=== PATIENT | male | born 1965 | race Caucasian/White ===

== ENCOUNTER → 2017-04-16 | Day surgery (SDC) | payer BC ==
[~2017-04-16] MED LIST: LIPITOR40 MG PO; SERTRALINE HCL100 M1 PO; ZESTORETIC 10-1 EAC1 PO
--- NOTE | ~2017-04-16 | OR ---
Unit #: [id number] #: [id number] Patient: LEON MOSES [id number] [address] [address] [id number] O MR#: [id number] NAME: LEON MOSES ROOM: Date of Procedure: 04/16/2017 Admission Date: 04/16/2017 Surgeon: Steve Bell M.D. : 1965 Attending Physician: Steve Bell M.D. Primary Care Physician: Jojo Merritt M.D. PROCEDURE OPERATIVE NOTE PROCEDURE PERFORMED Colonoscopy to the cecum. INDICATION A 51 year old with average risk for colorectal cancer. MEDICATION Monitored anesthesia. POSTOP FINDINGS 1. Colonoscopy completed to cecum. 2. Good prep. 3. No polyps, masses or colitis. The mucosa was normal and healthy. PLAN Repeat colonoscopy in 10 years. DESCRIPTION OF PROCEDURE The patient was explained the procedure risks and benefits, along with the risk and benefits of anesthesia. He was brought to the endoscopy room. Propofol anesthesia was given. Rectal exam was done, which was normal. Colonoscope was lubricated and passed through the rectum and advanced under direction vision all the way to the cecum. The cecum was identified by the ileocecal valve and appendiceal orifice. I then started to pull the scope out carefully looking. No polyps, masses or colitis were seen. The mucosa was normal and healthy. I retroflexed in the rectum. Small hemorrhoid seen. Gently the scope was pulled out. He tolerated it well. No immediate complications seen. Dictated by... Misti Felix/derik TD: 04/16/2017 12:03 JOB #: [id number] Unit #: [id number] #: [id number] Patient: LEON MOSES PROCEDURE OPERATIVE NOTE Page 1 of 1 X Steve Bell MD X PROCEDURE OPERATIVE NOTE
== END | disposition home or self-care (01) ==
LOC: COPS 08:37
DX: Z12.11 Encounter for screening for malignant neoplasm of colon (principal); K64.9 Unspecified hemorrhoids; I10 Essential (primary) hypertension; E78.5 Hyperlipidemia, unspecified; Z79.899 Other long term (current) drug therapy
CPT/HCPCS: J2250